=== PATIENT | female | born 1960 | race Caucasian/White ===

== ENCOUNTER 2024-10-03 15:12 | Emergency (ER) | payer MEDICARE, OTHER ==
[~2024-10-03] VITALS: Ht 162.6 cm; Wt 85.0 kg
[2024-10-03] MEDS ORDERED: HYDR-3965 PO (17:56)
[2024-10-03] MEDS: HYDROcodone/acetaminophen 10/325mg tab PO ONE (18:02)
[2024-10-03] MEDS: ketorolac trometh 15mg/ml vial 15 MG/ML ML IM ONE (18:04)
[2024-10-03 18:12] VITALS: BP 170/74; PULSE 68; RESP 16; TEMP 97.8; O2SAT 98
== END 2024-10-03 18:13 | disposition home or self-care (01) ==
LOC: ER 15:13
DX: S51.012A Laceration without foreign body of left elbow, initial encounter (principal); M25.561 Pain in right knee; M25.512 Pain in left shoulder; W18.39XA Other fall on same level, initial encounter; Y93.9 Activity, unspecified; Y92.89 Other specified places as the place of occurrence of the external cause; Y99.8 Other external cause status
CPT/HCPCS: 73564; 96372; 99284; A6258; A6449; J1885